=== PATIENT | male | born 1970 | race Caucasian/White ===

== ENCOUNTER 2020-12-18 12:09 | Emergency (ER) | payer BC, SELFPAY ==
[2020-12-18] VITALS (7 sets, daily range): BP systolic 115–157; BP diastolic 82–104; PULSE 86–99; RESP 15–20; TEMP 36.3; O2SAT 94–98
--- NOTE | ~2020-12-18 | XR_ITS ---
EXAMINATION: XR chest 2V DATE: 12/18/2020 12:41 INDICATION: Chest pain TECHNIQUE: Frontal and lateral views of the chest are obtained COMPARISON: None available FINDINGS: The lungs are free of acute opacities. There is no pleural effusion or pneumothorax. The ca rdiomediastinal silhouette is normal. There is mild thoracic spondylosis. IMPRESSION: 1. No acute cardiopulmonary abnormality. 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
--- NOTE | 2020-12-18 12:16 | ECG_ITS ---
Measurements Intervals [place] Rate: 96 P: 26 DC: 165 QRS: 1 QRSD: 100 T: 31 QT: 326 QTc: 413 Interpretive Statements SINUS RHYTHM DELAYED PRECORDIAL R/S TRANSITION BORDERLINE ECG Electronically Signed On 12-18-2020 13:50:20 SLIDING JOINT MAKER by Nasir Boone D.O.
--- NOTE | 2020-12-18 12:21 | ED.GENADULT ---
HPI - General Adult General Chief complaint: Chest Pain Stated complaint: chest pain x 2 days, sob Time Seen by Provider: 12/18/20 12:16 Source: patient History of Present Illness HPI narrative: Patient is a 50 y/o male complaining of mid sternal chest pain starting 2 days ago. He describes his pain as sharp and it radiates to his neck sometimes. He rates his pain as 8/10 at worst and 3/10 currently. There is no alleviating or exacerbating factor. He has some SOB, but no cough or fever. He states that his recent BP has been high. Related Data Home Medications Medication Instructions Recorded Confirmed omeprazole magnesium 20 mg 20 mg PO TID tablet 10/05/19 06/20/20 tablet,delayed release omeprazole magnesium 20 mg 20 mg PO DAILY 11/30/19 06/20/20 tablet,delayed release Allergies Allergy/AdvReac Type Severity Reaction Status Date / Time Penicillins Allergy Unknown Unknown Verified 12/18/20 12:27 shellfish derived Allergy Unknown Anaphylaxis Verified 12/18/20 12:27 Review of Systems Constitutional: Constitutional: Denies chills, Denies fever(s), Denies headache(s) and Denies weakness Eyes: Eyes: Denies blurry vision ENT: Denies headache(s) and Denies neck pain Cardiovascular: Cardiovascular: Reports chest pain and Reports dyspnea Respiratory: Respiratory: Denies cough and Reports dyspnea Gastrointestinal: Gastrointestinal: Denies abdominal pain, Denies diarrhea, Denies nausea and Denies vomiting Genitourinary: Genitourinary: Denies hematuria and Denies dysuria Musculoskeletal: Musculoskeletal: Denies back pain and Denies neck pain Neurologic: Denies headache(s) and Denies weakness [facility] Past Medical History Medical History HTN (hypertension) Surgical History Surgical History History of lumbar surgery History of orchiectomy History of tonsillectomy Family History Family History Father Hypertension Mother Hypertension Family history of diabetes mellitus in first degree relative Social History Social History Smoking packs per day: 0.5 Smoking cigarettes per day: 10.0 Years smoked: 37 Smoking pack-years: 18.50 Smoking status: Current every day smoker Tobacco type: cigarettes Second hand tobacco smoke exposure: Yes Alcohol intake: current Drinks per week: 18 Substance use: never Substance use type: does not use Gender identity (if verbalized by the patient): Male Exam Const: General: no acute distress and well developed Orientation/consciousness: oriented to person, oriented to place, oriented to time and patient oriented x3 HENMT: Head: normocephalic Ears: external ears normal General nose exam: Normal external nose present Eyes: General: appearance normal, both eyes and all related structures Conjunctivae: conjunctivae normal Neck: Neck: normal visual inspection and full ROM Chest: Chest palpation & inspection: normal inspection of the chest and no tenderness Resp: Effort & Inspection: normal respiratory effort Auscultation: clear to auscultation bilaterally Cardio: Rate: regular rate Rhythm: regular rhythm GI: GI Palp: No abdominal tenderness and Yes Soft to palpation Skin: General skin exam: normal color and turgor normal Neuro: General: oriented to person, oriented to place, oriented to time and patient oriented x3 Cognition (Neuro): normal cognition Extrem: General: normal to inspection, full ROM and no pedal edema Psych: Appearance: grossly normal Mental Status: mental status grossly normal Affect: normal affect Course Vital Signs Vital signs: Vital Signs Temperature 36.3 C L 12/18/20 12:16 Pulse Rate 98 12/18/20 12:16 Respiratory Rate 19 12/18/20 12:16 Blood Pressure 157/104 H 12/18/20 12:16 Pulse Oximetry 98 0
[2020-12-18] MEDS: ASPIRIN 81 MG CHEWABLE TABLET 324 MG PO (12:31)
[2020-12-18] MEDS: hydroCHLOROthiazide 25 MG TABLET PO (12:31)
[2020-12-18 12:32] LABS: Basophils Absolute Auto 0.1 K/mm3 (0.0-0.1); Basophils Percent Auto 0.8 % (0.2-1.2); Eosinophils Absolute Auto 0.1 K/mm3 (0-0.3); Eosinophils Percent Auto 1.2 % (0-4.4); Hemoglobin 16.4 g/dL (14.0-18.0); Immature Granulocyte Absolute 0.03 K/mm3 (0.00-0.031); Immature Granulocyte Percent A 0.3 % (0-0.5); Lymphocytes Absolute Auto 3.03 K/mm3 (0.9-3.2); Lymphocytes Percent Auto 30.9 % (18.3-44.2); Mean Corpuscular HGB Conc 34.2 g/dl (32-36); Mean Corpuscular Hemoglobin 30.5 pg (26-34); Mean Corpuscular Volume 89.4 fl (80-100); Mean Platelet Volume 9.6 fl (7.4-10.4); Monocytes Absolute Auto 0.6 K/mm3 (0.1-0.6); Monocytes Percent Auto 6.1 % (2.6-8.5); Neutrophils Percent Auto 60.7 % (45.5-73.1); Platelet Count Result 291 k/mm3 (150-375); Red Blood Count 5.37 M/mm3 (4.6-6.20); Red Cell Distribution Width 12.4 % (11.5-14.5); White Blood Count 9.8 K/mm3 (4.5-10.0)
[2020-12-18 12:43] LABS: Anion Gap 8 mmol/L (8-16); Blood Urea Nitrogen 9 mg/dL (9-20); Calcium 9.1 mg/dL (8.4-10.2); Carbon Dioxide 26 mmol/L (22-30); Chloride 101 mmol/L (98-107); Estimated CRCL calculation 105 ml/min; Estimated Glomerular Filt Rate > 60; Glucose 198 mg/dL (75-110); Sodium 135 mmol/L (137-145)
[2020-12-18 12:46] LABS: Prothrombin Time 13.4 Seconds (11.1-14.7)
[2020-12-18 12:48] LABS: Partial Thromboplastin Time 27.8 SECONDS (22.3-36.8)
[2020-12-18 12:55] LABS: Troponin I < 0.012 ng/mL (0.000-0.034)
[2020-12-18 13:10] LABS: D Dimer 0.27 ug/mL (<0.48)
[2020-12-18 16:23] LABS: Troponin I < 0.012 ng/mL (0.000-0.034)
== END 2020-12-18 17:01 | disposition home or self-care (01) ==
PROVIDERS: Emergency Medicine; Emergency Provider Emergency Medicine; PCP Family Medicine
DX: R07.2 Precordial pain (principal); I10 Essential (primary) hypertension; F17.210 Nicotine dependence, cigarettes, uncomplicated; R94.31 Abnormal electrocardiogram [ECG] [EKG]
CPT/HCPCS: 36415; 71046; 80048; 84484; 85025; 85380; 85610; 85730; 93005; 99284; A9270

== ENCOUNTER 2024-01-13 15:47 | Outpatient (CLI) | payer BC, SELFPAY ==
--- NOTE | ~2024-01-13 | XR_ITS ---
EXAMINATION: XR finger 1st LT min 2V, XR hand LT min 3V DATE: 01/13/2024 15:59 INDICATION: Left hand injury at the base of the thumb TECHNIQUE: 1. Dorsal palmar, oblique and lateral views of the left hand were obtained. 2. Dorsal palmar, lateral and oblique views of the left first digit were obtained COMPARISON: None FINDINGS: Alignment is normal. No fracture. Joint spaces are normal. Soft tissues are unremarkable. IMPRESSION: 1. Negative left hand and thumb radiographs. Reviewed, dictated and finalized at location L. IMPRESSION: 1. Negative left hand and thumb radiographs.
== END 2024-01-13 15:48 | disposition home or self-care (01) ==
PROVIDERS: PCP Family Medicine; Visit Provider Family Medicine
DX: S69.92XA Unspecified injury of left wrist, hand and finger(s), initial encounter (principal); X58.XXXA Exposure to other specified factors, initial encounter
CPT/HCPCS: 73130; 73140

== ENCOUNTER 2025-09-07 09:14 | Outpatient (CLI) | payer BC, SELFPAY ==
--- OUTSIDE RECORDS SUMMARY | 2025-09-07 09:56 | XMS_ITS | Clinical Summary ---
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 [facility] Care Teams Manager Government Relationship Specialty Start Date End Date Gabe Fox MD [address] [facility] [address] [place] [address] PCP - General Family Medicine 12/27/20
[2025-09-13 14:48] VITALS: BMI 30.7
--- NOTE | 2025-09-13 14:48 | WPDHOMESLEEP ---
Sleep Study - Home Unattended Date of Study: 09/07/25 Ordering Provider: Gonzalo May APRN Interpreting Provider: Thuy Calle, DO Home Sleep Study Type: Watch PAT Height: 1.8 m Weight: 99.79 kg Body Mass Index: 30.7 Neck Circumference (inches): 17.5 [place]: 6 Reason for Sleep Study Witnessed apneas during sleep Sleep History The patient is a 55-year-old male that had a sleep study ordered by the Pulmonary group for evaluation of sleep apnea. The patient rarely awakens from sleep short of breath. He rarely awakens at night with heartburn, belching or cough. He rarely snores. He constantly snores loud enough that others complain. He frequently has trouble sleeping when he has a cold. He rarely wakes up gasping for air throughout the night. He occasionally has breathing problems at night observed by himself or others. He denies sweating excessively at night. He rarely has heart palpitations or irregular heartbeats during the night. He rarely falls asleep during the day but never while driving. He denies sleep paralysis, cataplexy and hypnagogic/ hypnopompic hallucinations. He denies having trouble at school or work due to sleepiness. He denies feeling afraid of going to sleep. He denies having nightmares. He rarely remembers his dreams. He frequently has thoughts racing through his mind. He denies feeling sad, depressed or anxious. He denies having muscular tension. He denies noticing parts of his body jerk. He denies kicking during the night. He denies having crawling and aching feelings in his legs and denies having leg pain during the night. He occasionally grinds his teeth during sleep but never awakens with morning jaw pain. He is occasionally bothered by pain during the day and occasionally awakened by pain during the night. He occasionally wakes up feeling stiff in the morning. He occasionally wakes up with sore or achy muscles. He occasionally wakes up with pain in the neck, spine and other joints. He goes to bed at 10:00 p.m. on weekdays. He does not have a set time that he goes to bed on the weekends. He states that it takes a while for him to fall asleep. He wakes up 1-3 times throughout the night to urinate is able fall back asleep within a few minutes. He wakes up at 4:30 a.m. on weekdays and between 8-9 a.m. on the weekends. He typically gets 4-5 hours of sleep per night. He will stay in bed for 5-10 minutes after waking up in the morning. He currently lives with his . He denies consuming any caffeinated beverages within 2 hours of bedtime. He denies engaging in physical exercise before bedtime. He denies reading or watching television before falling asleep. He will take naps in afternoon or the evening and they are refreshing. He consumes 4 caffeinated beverages per day. He smokes 15 cigarettes per day. He will consume alcohol socially but not daily. He denies recreational drug use. [facility] Past Medical History Medical History HTN (hypertension) Surgical History Surgical History History of lumbar surgery History of orchiectomy History of tonsillectomy Family History Family History Father Hypertension Mother Hypertension Family history of diabetes mellitus in first degree relative Social History Social History Smoking packs per day: 0.5 Smoking cigarettes per day: 10.0 Years smoked: 38 Smoking pack-years: 19.00 Smoking status: Current every day smoker Tobacco type: cigarettes Second hand tobacco smoke exposure: Yes Alcohol intake: current Drinks per week: 30 Substance use: never Substance use type: does not use Living arrangements: with family Occupation/Education: occupation Gender identity (if verbalized by the patient): Male Sexual Orientation (if Verbalized by the Patient): Straight or Heterosexual Medications Home Medications ?Medication ?Instructions ?Recorded ?Confirmed ?Type omeprazole magnesium 20 mg 20 mg PO DAILY 11/30/19 07/28/25 History tablet,delayed release (Prilosec OTC) metoprolol succinate 25 mg 25 mg PO DAILY #90 tabs 06/29/25 07/28/25 Rx tablet,extended release 24 hr Sleep Procedure The sleep study was completed using [employer] a technically adequate device with seven channels: peripheral arterial tone, actigraphy, body position, snore, respiratory movement, pulse oximetry, sleep staging, and heart rate. Prior to using the device, the patient received verbal and written instructions for its application and was provided with the help desk phone number for additional telephonic instruction with 24-hour availability of qualified personnel to answer questions. The study was scored using CMS guidelines. Sleep Architecture The total recording time is 6 hrs, 40 min. The total sleep time is 6 hrs, 0 min. Sleep latency is 10 minutes. REM latency is 74 minutes. The patient had 6 episodes of waking. Sleep architecture shows 20.9% deep sleep, 55.7% light sleep, and (as % Total Sleep Time) showed NREM (Light 55.7%; Deep 20.9%), and a 23.3% stage REM. The patient spent 73.5% of total sleep time in the supine position. Sleep efficiency was 90.00. Respiratory Analysis The overall AHI (pAHI 4%:) is 31.6. The overall AHI (pAHI 3%:) is 37.9. The central AHI is 0.6. The AHI was 33.1 in NREM and 51.5 in REM sleep. The AHI was 49.5 in Supine and 7.6 in Non-supine sleep. Percent of [place] respirations is 0.0. Oximetry Data The oxygen desaturation index (AMANDA 4%:) is 24.5. The mean saturation is 92%, and the lowest saturation is 83%. Time spent with saturation < 88% is 11.7 minutes. Snoring Profile Snoring average intensity is 41 dB. The patient snored above 45 decibels for 35.2 minutes, 9.8% of sleep time. Cardiac Profile The average pulse rate is 59 beats per minutes. The lowest pulse rate is 46 bpm. The highest pulse rate reported is 85 bpm. Suspected Afib total duration is 0:01:31, (h:m:sec). The longest Afibevent duration is 0:01:31. A suspected arrhythmia flagged in the sleep report does not necessarily imply an arrhythmia condition is present, but rather suggests that further investigation should be considered. A-Fib events < 60 seconds may be artifact. Premature beats occur <0.1 per minute. Assessment and Plan Assessment and Plan (1) CLAIR (obstructive sleep apnea): Code(s): G47.33 - Obstructive sleep apnea (adult) (pediatric) Status: Acute Assessment and Plan: The patient had an overall AHI of 31.6 with desaturation down to 83%. This is consistent with severe sleep apnea. I recommend that the patient had a CPAP titration study with the use of a hypnotic to ensure we obtain enough sleep data and find an optimal pressure setting. Data The data obtained during this sleep study is adequate for interpretation. Certification This sleep study has been reviewed by a board certified sleep medicine physician.
== END 2025-09-08 15:38 | disposition home or self-care (01) ==
PROVIDERS: PCP Physician Assistant; Visit Provider Nurse Practitioner Family
DX: G47.30 Sleep apnea, unspecified (principal); G47.33 Obstructive sleep apnea (adult) (pediatric)
CPT/HCPCS: 95800